=== PATIENT | male | born 1955 | race Caucasian/White ===

== ENCOUNTER → 2021-06-16 14:14 | Outpatient (CLI) | payer MEDICARE, OTHER, SELFPAY ==
--- NOTE | 2021-06-16 14:19 | DI.MRI.S_ITS ---
PROCEDURE: MR ABDOMEN WO CON INDICATIONS: ACUTE GASTRITIS WO BLEEDING TECHNIQUE: Coronal HASTE through the abdomen, axial 2-D FLASH in- and [id number], and breath-hold T2 FSE with fat saturation through the biliary system and pancreas. Oblique coronal and axial thin-slice HASTE, radial thick-slab HASTE centered on the extrahepatic bile ducts. COMPARISON: Outside Film, CT, CT ABDOMEN PELVIS WITH CONTRAST, 10/15/2020, 21:32. [facility], US, US ABDOMEN COMPLETE, 05/17/2021, 12:53. FINDINGS: Image quality: Excellent. Pancreas and biliary system: There is a filling defect in the distal CBD measuring 1.1 cm, (). CBD is mildly dilated measuring 1 cm. CHD is mildly dilated measuring 1.3 cm. There is mild intrahepatic biliary ductal dilatation. These findings are in keeping with choledocholithiasis. The gallbladder is absent. Fatty atrophy of the pancreas. No pancreatic ductal dilatation. Other solid organs: Liver is normal in size. Hepatic steatosis. No focal areas of T2 hyperintensity. Spleen is normal in size. No adrenal nodules. Both kidneys are normal in size, without hydronephrosis. Small T2 hyperintense renal cysts. Several small peripelvic cysts. Nodes and vessels: No retroperitoneal or mesenteric adenopathy by size criteria. Aorta and inferior vena cava are normal in size. Bowel and peritoneum: Post median sternotomy. Unenhanced bowel loops are normal in caliber. Stomach is not distended. Diverticulosis. No free fluid. Lung bases: No basal pleural effusions. Heart size is normal. Bones and soft tissues: No ventral hernias. Bone marrow is of normal overall signal. IMPRESSION: 1. Choledocholithiasis. A stone in the distal CBD measuring 1.1 cm. Extrahepatic and intrahepatic biliary ductal dilatation. 2. Post cholecystectomy. 3. No pancreatic ductal dilatation. Comment: Findings were discussed with Dr. Bobby at the time of dictation. Dictated by: Yoni Bland M.D. on 06/17/2021 at 7:49 Approved by: Yoni Bland M.D. on 06/17/2021 at 8:03
== END ==
PROVIDERS: Family Provider Internal Medicine; PCP Family Medicine; Referring Provider Family Medicine; Visit Provider Family Medicine
DX: K29.00 Acute gastritis without bleeding (principal); K80.50 Calculus of bile duct without cholangitis or cholecystitis without obstruction; K83.8 Other specified diseases of biliary tract; K57.90 Diverticulosis of intestine, part unspecified, without perforation or abscess without bleeding; N28.1 Cyst of kidney, acquired; Z90.49 Acquired absence of other specified parts of digestive tract
CPT/HCPCS: 74181